=== PATIENT | male | born 1955 | race Caucasian/White ===

== ENCOUNTER 2016-11-15 05:37 | Emergency (ER) | payer SELFPAY ==
[~2016-11-15] VITALS: Ht 195.6 cm; Wt 97.7 kg
[~2016-11-15 05:37] MED LIST: DILAUDID 2MG TAB2 MG PO; NO HOME MEDICATIONS
[2016-11-15 05:42] VITALS: TEMP 97.8
[2016-11-15] MEDS ORDERED: ULTRAM 50MG TAB50 MG PO ×2 (06:02→08:48)
[2016-11-15 06:05] LABS: BASO # 0.1 (0.0-0.2); BASO % 1.4 % (0.0-2.0); EOS # 0.3 (0.0-0.7); EOS % 2.6 % (0-4.0); GRAN # 5.9 (1.4-6.5); GRAN % 57.5 % (42.2-75.2); HEMATOCRIT 49.3 % (42.0-52.0); HEMOGLOBIN 16.4 g/dl (13.5-18.0); LYMPH # 2.7 (1.2-3.4); LYMPH % 26.3 % (20.0-51.0); MEAN CELL VOLUME 91 fl (80.0-100.0); MEAN CORPUSCULAR HEMOGLOBIN 30 pg (27.0-31.0); MEAN CORPUSCULAR HGB CONC 33 g/dl (33.0-37.0); MEAN PLATELET VOLUME 9.7 fl (7.4-10.4); MONO # 1.2 (0.1-0.6); MONO % 11.3 % (1.7-9.3); PLATELET COUNT 286 K/mm3 (130-400); REDCELL DISTRIBUTION WIDTH-CV 15.2 % (11.5-14.5); WHITE BLOOD COUNT 10.2 K/mm3 (4.8-10.8)
[2016-11-15 06:20] LABS: ADJUSTED CALCIUM 8.6 mg/dL (8.4-10.2); ALANINE AMINOTRANSFERASE 22 U/L (21-72); ALBUMIN 4.1 gm/dL (3.5-5.0); ALKALINE PHOSPHATASE 57 U/L (50-136); ANION GAP 12 mmol/L (7-16); BILIRUBIN,TOTAL 0.6 mg/dL (0.0-1.0); BLOOD UREA NITROGEN 16 mg/dL (9-20); CALCIUM 8.7 mg/dL (8.4-10.2); CARBON DIOXIDE 25 mmol/L (22-30); CHLORIDE 103 mmol/L (98-107); CREATININE, serum 0.79 mg/dL (0.66-1.25); GLUCOSE 112 mg/dL (74-106); LIPASE 144 U/L (23-300); POTASSIUM 4.1 mmol/L (3.4-5.0); SODIUM 140 mmol/L (137-145); TOTAL PROTEIN 6.9 gm/dL (6.4-8.2)
[2016-11-15 06:29] LABS: B-TYPE NATRIURETIC PEPTIDE 81 pg/mL (0-125)
[2016-11-15 06:36] LABS: TROPONIN-I < 0.012 ng/mL (0.000-0.034)
[2016-11-15 06:37] LABS: C-REACTIVE PROTEIN < 0.5 mg/dL (0.0-0.9)
[2016-11-15 07:32] LABS: PH 5 (5-8); SQUAMOUS EPITHELIAL None Seen /hpf; URINE APPEARANCE Clear; URINE BACTERIA None Seen /hpf; URINE BILIRUBIN Negative (NEGATIVE); URINE BLOOD Negative (NEGATIVE); URINE COLOR Yellow; URINE GLUCOSE Negative (NEGATIVE); URINE KETONE Negative (NEGATIVE); URINE RBC 0-2 /hpf; URINE UROBILINOGEN Negative (NEGATIVE); URINE WBC 0-2 /hpf
[2016-11-15] MEDS ORDERED: PEPCID 20MG TAB20 MG PO (08:37)
[2016-11-15 08:52] VITALS: BP 147/107; PULSE 63
== END 2016-11-15 08:54 | disposition home or self-care (01) ==
LOC: COL.ER 05:37
PROVIDERS: Emergency Medicine
DX: R10.13 Epigastric pain (principal); T43.626A Underdosing of amphetamines, initial encounter; Z91.138 Patient's unintentional underdosing of medication regimen for other reason; F43.10 Post-traumatic stress disorder, unspecified; R11.0 Nausea
CPT/HCPCS: J1170; J2405; J7030

== ENCOUNTER 2016-12-05 14:16 | Emergency (ER) | payer SELFPAY ==
[~2016-12-05] VITALS: Ht 195.6 cm; Wt 100.0 kg
[~2016-12-05 14:16] MED LIST changes: +PEPCID 20MG TAB20 MG PO; +ULTRAM 50MG TAB50 MG PO
[2016-12-05 14:20] VITALS: PULSE 62; TEMP 97.8
[2016-12-05 14:56] LABS: BASO # 0.1 (0.0-0.2); BASO % 1.3 % (0.0-2.0); EOS # 0.2 (0.0-0.7); EOS % 1.9 % (0-4.0); GRAN # 4.4 (1.4-6.5); GRAN % 54.5 % (42.2-75.2); HEMATOCRIT 50.7 % (42.0-52.0); HEMOGLOBIN 16.7 g/dl (13.5-18.0); LYMPH # 2.6 (1.2-3.4); MEAN CELL VOLUME 90 fl (80.0-100.0); MEAN CORPUSCULAR HEMOGLOBIN 30 pg (27.0-31.0); MEAN CORPUSCULAR HGB CONC 33 g/dl (33.0-37.0); MONO # 0.8 (0.1-0.6); MONO % 9.9 % (1.7-9.3); PLATELET COUNT 217 K/mm3 (130-400); RED BLOOD COUNT 5.61 M/mm3 (4.20-5.60); REDCELL DISTRIBUTION WIDTH-CV 14.8 % (11.5-14.5)
[2016-12-05 15:09] LABS: ALANINE AMINOTRANSFERASE 20 U/L (21-72); ALBUMIN 4.3 gm/dL (3.5-5.0); ALKALINE PHOSPHATASE 53 U/L (50-136); ANION GAP 11 mmol/L (7-16); BILIRUBIN,TOTAL 0.7 mg/dL (0.0-1.0); BLOOD UREA NITROGEN 17 mg/dL (9-20); CALCIUM 9.2 mg/dL (8.4-10.2); CARBON DIOXIDE 26 mmol/L (22-30); CHLORIDE 102 mmol/L (98-107); GLUCOSE 88 mg/dL (74-106); LIPASE 41 U/L (23-300); POTASSIUM 4.2 mmol/L (3.4-5.0); SODIUM 138 mmol/L (137-145); TOTAL PROTEIN 7.2 gm/dL (6.4-8.2)
[2016-12-05 15:33] LABS: C-REACTIVE PROTEIN < 0.5 mg/dL (0.0-0.9)
[2016-12-05 15:43] LABS: TROPONIN-I < 0.012 ng/mL (0.000-0.034)
[2016-12-05 15:46] LABS: PH 6 (5-8); SQUAMOUS EPITHELIAL None Seen /hpf; URINE APPEARANCE Clear; URINE BACTERIA Rare /hpf; URINE BILIRUBIN Negative (NEGATIVE); URINE BLOOD Negative (NEGATIVE); URINE COLOR Straw; URINE GLUCOSE Negative (NEGATIVE); URINE KETONE Negative (NEGATIVE); URINE RBC 0-2 /hpf; URINE UROBILINOGEN Negative (NEGATIVE); URINE WBC 0-2 /hpf
[2016-12-05] MEDS ORDERED: NORVASC 5MG5 MG/TAB PO (18:07)
[2016-12-05 19:07] VITALS: BP 163/109
== END 2016-12-05 19:10 | disposition home or self-care (01) ==
LOC: COL.ER 14:16
PROVIDERS: Emergency Medicine
DX: R10.11 Right upper quadrant pain (principal); R10.13 Epigastric pain; I10 Essential (primary) hypertension; G89.29 Other chronic pain; K21.9 Gastro-esophageal reflux disease without esophagitis; F90.9 Attention-deficit hyperactivity disorder, unspecified type; F17.210 Nicotine dependence, cigarettes, uncomplicated
CPT/HCPCS: J1170; J2405; J7030; Q9967

== ENCOUNTER 2016-12-07 05:20 | Emergency (ER) | payer SELFPAY ==
[~2016-12-07] VITALS: Ht 195.6 cm; Wt 97.7 kg
[~2016-12-07 05:20] MED LIST changes: +NORVASC 5MG5 MG/TAB PO
[2016-12-07 05:25] VITALS: TEMP 97.5
[2016-12-07 06:07] LABS: BASO # 0.1 (0.0-0.2); BASO % 1.1 % (0.0-2.0); EOS # 0.2 (0.0-0.7); EOS % 1.9 % (0-4.0); GRAN # 4.9 (1.4-6.5); GRAN % 59.9 % (42.2-75.2); HEMATOCRIT 51.5 % (42.0-52.0); HEMOGLOBIN 17.6 g/dl (13.5-18.0); LYMPH # 2.2 (1.2-3.4); LYMPH % 26.3 % (20.0-51.0); MEAN CELL VOLUME 89 fl (80.0-100.0); MEAN CORPUSCULAR HEMOGLOBIN 31 pg (27.0-31.0); MEAN CORPUSCULAR HGB CONC 34 g/dl (33.0-37.0); MONO # 0.9 (0.1-0.6); MONO % 10.4 % (1.7-9.3); PLATELET COUNT 224 K/mm3 (130-400); RED BLOOD COUNT 5.76 M/mm3 (4.20-5.60); REDCELL DISTRIBUTION WIDTH-CV 14.9 % (11.5-14.5); WHITE BLOOD COUNT 8.3 K/mm3 (4.8-10.8)
[2016-12-07 06:21] LABS: ALANINE AMINOTRANSFERASE 18 U/L (21-72); ALBUMIN 4.3 gm/dL (3.5-5.0); ALKALINE PHOSPHATASE 51 U/L (50-136); ANION GAP 12 mmol/L (7-16); BILIRUBIN,TOTAL 1.1 mg/dL (0.0-1.0); BLOOD UREA NITROGEN 13 mg/dL (9-20); C-REACTIVE PROTEIN < 0.5 mg/dL (0.0-0.9); CALCIUM 9.2 mg/dL (8.4-10.2); CARBON DIOXIDE 26 mmol/L (22-30); CHLORIDE 102 mmol/L (98-107); CREATININE, serum 0.81 mg/dL (0.66-1.25); GLUCOSE 94 mg/dL (74-106); LIPASE 54 U/L (23-300); POTASSIUM 3.8 mmol/L (3.4-5.0); SODIUM 140 mmol/L (137-145); TOTAL PROTEIN 7.6 gm/dL (6.4-8.2)
[2016-12-07] MEDS ORDERED: NEXIUM 40MG40 MG PO (06:21)
[2016-12-07 08:34] VITALS: BP 173/113; PULSE 49
== END 2016-12-07 08:40 | disposition home or self-care (01) ==
LOC: COL.ER 05:20
PROVIDERS: Emergency Medicine
DX: R10.13 Epigastric pain (principal); I10 Essential (primary) hypertension; R11.2 Nausea with vomiting, unspecified; R63.0 Anorexia; F17.200 Nicotine dependence, unspecified, uncomplicated
CPT/HCPCS: C9113; J1170; J2550; J7030

== ENCOUNTER 2016-12-24 15:45 | Emergency (ER) | payer SELFPAY ==
[~2016-12-24] VITALS: Ht 195.6 cm; Wt 100.0 kg
[~2016-12-24 15:45] MED LIST changes: +NEXIUM 40MG40 MG PO
[2016-12-24 15:54] VITALS: TEMP 98.4
[2016-12-24 16:18] LABS: BASO # 0.1 (0.0-0.2); BASO % 1.1 % (0.0-2.0); EOS # 0.1 (0.0-0.7); EOS % 1.2 % (0-4.0); GRAN # 6.5 (1.4-6.5); GRAN % 61.8 % (42.2-75.2); HEMATOCRIT 47.2 % (42.0-52.0); HEMOGLOBIN 16.1 g/dl (13.5-18.0); LYMPH # 2.7 (1.2-3.4); LYMPH % 26.1 % (20.0-51.0); MEAN CELL VOLUME 91 fl (80.0-100.0); MEAN CORPUSCULAR HEMOGLOBIN 31 pg (27.0-31.0); MEAN CORPUSCULAR HGB CONC 34 g/dl (33.0-37.0); MEAN PLATELET VOLUME 9.7 fl (7.4-10.4); MONO % 9.2 % (1.7-9.3); PLATELET COUNT 252 K/mm3 (130-400); RED BLOOD COUNT 5.18 M/mm3 (4.20-5.60); REDCELL DISTRIBUTION WIDTH-CV 15.4 % (11.5-14.5); WHITE BLOOD COUNT 10.4 K/mm3 (4.8-10.8)
[2016-12-24 16:24] LABS: INR 0.9 (0.8-3.0); PROTHROMBIN TIME 10.3 SECONDS (9.7-12.8)
[2016-12-24 16:26] LABS: PARTIAL THROMBOPLASTIN TIME 27.9 SECONDS (26.0-37.0)
[2016-12-24 16:34] LABS: ALANINE AMINOTRANSFERASE 24 U/L (21-72); ALBUMIN 4.1 gm/dL (3.5-5.0); ALKALINE PHOSPHATASE 50 U/L (50-136); ANION GAP 11 mmol/L (7-16); BILIRUBIN,TOTAL 0.5 mg/dL (0.0-1.0); BLOOD UREA NITROGEN 21 mg/dL (9-20); CALCIUM 9.1 mg/dL (8.4-10.2); CARBON DIOXIDE 23 mmol/L (22-30); CHLORIDE 107 mmol/L (98-107); CREATININE, serum 0.98 mg/dL (0.66-1.25); GLUCOSE 108 mg/dL (74-106); POTASSIUM 3.9 mmol/L (3.4-5.0); SODIUM 142 mmol/L (137-145)
[2016-12-24 16:51] LABS: TROPONIN-I < 0.012 ng/mL (0.000-0.034)
[2016-12-24] MEDS ORDERED: NORVASC 5MG5 MG/TAB PO (18:07)
[2016-12-24] MEDS ORDERED: ADDERALL5 MG PO (18:07)
[2016-12-24] MEDS ORDERED: XANAX 1MG1 MG PO (18:07)
[2016-12-24] MEDS ORDERED: PHENERGAN 25 TA25 MG PO (18:21)
[2016-12-24 18:33] VITALS: BP 152/100; PULSE 64
== END 2016-12-24 18:25 | disposition home or self-care (01) ==
LOC: COL.ER 15:45
PROVIDERS: Nurse Practitioner
DX: R07.9 Chest pain, unspecified (principal); F11.23 Opioid dependence with withdrawal; F15.93 Other stimulant use, unspecified with withdrawal; I10 Essential (primary) hypertension
CPT/HCPCS: J1885; J2550; J7030

== ENCOUNTER 2017-04-09 19:48 | Emergency (ER) | payer SELFPAY ==
[~2017-04-09] VITALS: Ht 195.6 cm; Wt 102.3 kg
[~2017-04-09 19:48] MED LIST changes: +ADDERALL5 MG PO; +PHENERGAN 25 TA25 MG PO; +XANAX 1MG1 MG PO
[2017-04-09 19:53] VITALS: TEMP 97.9
[2017-04-09 20:42] LABS: BASO # 0.1 (0.0-0.2); BASO % 1.3 % (0.0-2.0); EOS # 0.2 (0.0-0.7); EOS % 2.4 % (0-4.0); GRAN % 52.6 % (42.2-75.2); HEMATOCRIT 48.5 % (42.0-52.0); HEMOGLOBIN 16.7 g/dl (13.5-18.0); LYMPH # 3.2 (1.2-3.4); LYMPH % 33.6 % (20.0-51.0); MEAN CELL VOLUME 91 fl (80.0-100.0); MEAN CORPUSCULAR HEMOGLOBIN 31 pg (27.0-31.0); MEAN CORPUSCULAR HGB CONC 34 g/dl (33.0-37.0); MEAN PLATELET VOLUME 9.8 fl (7.4-10.4); MONO # 0.9 (0.1-0.6); MONO % 9.6 % (1.7-9.3); PLATELET COUNT 267 K/mm3 (130-400); RED BLOOD COUNT 5.35 M/mm3 (4.20-5.60); WHITE BLOOD COUNT 9.6 K/mm3 (4.8-10.8)
[2017-04-09 20:56] LABS: ADJUSTED CALCIUM 9.3 mg/dL (8.4-10.2); ALANINE AMINOTRANSFERASE 25 U/L (21-72); ALBUMIN 4.2 gm/dL (3.5-5.0); ALKALINE PHOSPHATASE 47 U/L (50-136); ANION GAP 9 mmol/L (7-16); BILIRUBIN,TOTAL 0.5 mg/dL (0.0-1.0); BLOOD UREA NITROGEN 21 mg/dL (9-20); CALCIUM 9.5 mg/dL (8.4-10.2); CARBON DIOXIDE 24 mmol/L (22-30); CHLORIDE 107 mmol/L (98-107); CREATININE, serum 1.13 mg/dL (0.66-1.25); GLUCOSE 100 mg/dL (74-106); LIPASE 80 U/L (23-300); POTASSIUM 3.8 mmol/L (3.4-5.0); SODIUM 140 mmol/L (137-145); TOTAL PROTEIN 7.1 gm/dL (6.4-8.2)
[2017-04-09 20:57] LABS: C-REACTIVE PROTEIN < 0.5 mg/dL (0.0-0.9)
[2017-04-09 21:09] LABS: TROPONIN-I < 0.012 ng/mL (0.000-0.034)
[2017-04-09 22:03] LABS: COLLECTION METHOD CLEAN CATCH
[2017-04-09 22:10] LABS: MUCOUS Present /lpf; PH 6 (5-8); SQUAMOUS EPITHELIAL None Seen /hpf; URINE APPEARANCE Clear; URINE BACTERIA None Seen /hpf; URINE BILIRUBIN Negative (NEGATIVE); URINE BLOOD Negative (NEGATIVE); URINE COLOR Yellow; URINE GLUCOSE Negative (NEGATIVE); URINE KETONE Negative (NEGATIVE); URINE LEUKOCYTE ESTERASE Negative (NEGATIVE); URINE PROTEIN(semi-quant) Negative (NEGATIVE); URINE RBC 0-2 /hpf; URINE UROBILINOGEN Negative (NEGATIVE); URINE WBC 0-2 /hpf
[2017-04-09 22:59] VITALS: BP 125/97; PULSE 80
== END 2017-04-09 23:01 | disposition home or self-care (01) ==
LOC: COL.ER 19:48
PROVIDERS: Emergency Medicine
DX: R10.9 Unspecified abdominal pain (principal); I10 Essential (primary) hypertension
CPT/HCPCS: J1170; J2060; J2405; J7030

== ENCOUNTER 2017-05-25 16:02 | Emergency (ER) | payer SELFPAY ==
[~2017-05-25] VITALS: Ht 195.6 cm; Wt 100.0 kg
[2017-05-25 16:15] VITALS: BP 167/98; PULSE 72; TEMP 98
[2017-05-25 17:05] LABS: BASO # 0.1 (0.0-0.2); BASO % 1.2 % (0.0-2.0); EOS # 0.2 (0.0-0.7); EOS % 2.4 % (0-4.0); HEMATOCRIT 48.5 % (42.0-52.0); HEMOGLOBIN 16.4 g/dl (13.5-18.0); LYMPH # 2.2 (1.2-3.4); LYMPH % 25.3 % (20.0-51.0); MEAN CELL VOLUME 92 fl (80.0-100.0); MEAN CORPUSCULAR HEMOGLOBIN 31 pg (27.0-31.0); MEAN CORPUSCULAR HGB CONC 34 g/dl (33.0-37.0); MEAN PLATELET VOLUME 9.8 fl (7.4-10.4); MONO # 1.1 (0.1-0.6); MONO % 12.7 % (1.7-9.3); PLATELET COUNT 239 K/mm3 (130-400); RED BLOOD COUNT 5.26 M/mm3 (4.20-5.60); WHITE BLOOD COUNT 8.5 K/mm3 (4.8-10.8)
[2017-05-25] MEDS ORDERED: MICROZIDE12.5 MG PO (17:05)
[2017-05-25] MEDS ORDERED: NORVASC 5MG5 MG/TAB PO (17:06)
[2017-05-25] MEDS ORDERED: NORCO 325 MG-101 TAB PO (17:12)
[2017-05-25 17:17] LABS: ADJUSTED CALCIUM 9.2 mg/dL (8.4-10.2); ALANINE AMINOTRANSFERASE 30 U/L (21-72); ALBUMIN 4.4 gm/dL (3.5-5.0); ALKALINE PHOSPHATASE 49 U/L (50-136); ANION GAP 9 mmol/L (7-16); BILIRUBIN,TOTAL 0.4 mg/dL (0.0-1.0); BLOOD UREA NITROGEN 17 mg/dL (9-20); CALCIUM 9.5 mg/dL (8.4-10.2); CARBON DIOXIDE 21 mmol/L (22-30); CHLORIDE 108 mmol/L (98-107); CREATININE, serum 0.84 mg/dL (0.66-1.25); GLUCOSE 93 mg/dL (74-106); LIPASE 46 U/L (23-300); POTASSIUM 4.6 mmol/L (3.4-5.0); SODIUM 138 mmol/L (137-145); TOTAL PROTEIN 7.3 gm/dL (6.4-8.2)
[2017-05-25 17:18] LABS: C-REACTIVE PROTEIN < 0.5 mg/dL (0.0-0.9)
[2017-05-25 17:25] LABS: TROPONIN-I < 0.012 ng/mL (0.000-0.034)
[2017-05-25 17:38] LABS: COLLECTION METHOD CLEAN CATCH
[2017-05-25 17:58] LABS: PH 5 (5-8); SQUAMOUS EPITHELIAL None Seen /hpf; URINE APPEARANCE Clear; URINE BACTERIA None Seen /hpf; URINE BILIRUBIN Negative (NEGATIVE); URINE BLOOD Negative (NEGATIVE); URINE COLOR Yellow; URINE GLUCOSE Negative (NEGATIVE); URINE KETONE Negative (NEGATIVE); URINE LEUKOCYTE ESTERASE Negative (NEGATIVE); URINE PROTEIN(semi-quant) Negative (NEGATIVE); URINE RBC 0-2 /hpf; URINE UROBILINOGEN Negative (NEGATIVE); URINE WBC 0-2 /hpf
== END 2017-05-25 18:25 | disposition home or self-care (01) ==
LOC: COL.ER 16:02
PROVIDERS: Emergency Medicine
DX: R10.13 Epigastric pain (principal); I10 Essential (primary) hypertension; F17.210 Nicotine dependence, cigarettes, uncomplicated
CPT/HCPCS: J2270; J2405; J7030

== ENCOUNTER 2017-06-26 05:34 | Emergency (ER) | payer BC ==
[~2017-06-26] VITALS: Ht 195.6 cm; Wt 100.0 kg
[~2017-06-26 05:34] MED LIST changes: +MICROZIDE12.5 MG PO; +NORCO 325 MG-101 TAB PO
[2017-06-26 05:37] VITALS: BP 155/96
[2017-06-26] MEDS ORDERED: PERCOCET 325 MG1 TA2 PO (06:42)
[2017-06-26 06:55] VITALS: PULSE 60
== END 2017-06-26 06:55 | disposition home or self-care (01) ==
LOC: COL.ER 05:34
DX: G89.29 Other chronic pain (principal); R10.13 Epigastric pain; I10 Essential (primary) hypertension; F17.210 Nicotine dependence, cigarettes, uncomplicated
CPT/HCPCS: J0500; J1170

== ENCOUNTER 2017-08-28 18:45 | Emergency (ER) | payer BC ==
[~2017-08-28] VITALS: Ht 195.6 cm; Wt 100.0 kg
[~2017-08-28 18:45] MED LIST changes: +CARAFATE 1GM1 G PO; +FLEXERIL 1010 MG/TAB PO; +NORCO 325 MG-51 TAB PO; +PERCOCET 325 MG1 TA2 PO; +PRILOTC PO
[2017-08-28 18:48] VITALS: TEMP 98.1
[2017-08-28] MEDS ORDERED: ADDERALL15 MG PO (19:24)
[2017-08-28] MEDS ORDERED: ULTRAM 50MG TAB50 MG PO (20:16)
[2017-08-28] MEDS ORDERED: LIDODERM 5% PATC1 EA TP (20:18)
[2017-08-28 20:28] VITALS: BP 148/103; PULSE 64
== END 2017-08-28 20:30 | disposition home or self-care (01) ==
LOC: COL.ER 18:45
DX: G89.29 Other chronic pain (principal); M54.5 Low back pain; F17.210 Nicotine dependence, cigarettes, uncomplicated; F12.90 Cannabis use, unspecified, uncomplicated; Z98.890 Other specified postprocedural states
CPT/HCPCS: J2270; J2550

== ENCOUNTER 2017-10-14 22:58 | Emergency (ER) | payer BC ==
[~2017-10-14] VITALS: Ht 195.6 cm; Wt 97.7 kg
[~2017-10-14 22:58] MED LIST changes: +ADDERALL15 MG PO; +LIDODERM 5% PATC1 EA TP; +ZOFRAN ODT4 MG PO
[2017-10-14 23:02] VITALS: TEMP 97.7
[2017-10-15 01:06] VITALS: BP 173/122
[2017-10-15 01:54] VITALS: PULSE 57
== END 2017-10-15 01:54 | disposition home or self-care (01) ==
LOC: COL.ER 22:58
DX: G89.29 Other chronic pain (principal); R10.13 Epigastric pain; I10 Essential (primary) hypertension; K21.9 Gastro-esophageal reflux disease without esophagitis; F17.210 Nicotine dependence, cigarettes, uncomplicated; Z87.11 Personal history of peptic ulcer disease; F12.90 Cannabis use, unspecified, uncomplicated
CPT/HCPCS: J0500; J1170; J1630; J2765; J7120

== ENCOUNTER 2017-10-19 13:00 | Inpatient (IN) | payer BC ==
[~2017-10-19] VITALS: Ht 195.6 cm; Wt 87.5 kg
[2017-10-19 14:44] LABS: BASO # 0.1 (0.0-0.2); BASO % 0.9 % (0.0-2.0); EOS # 0.1 (0.0-0.7); EOS % 0.6 % (0-4.0); GRAN # 7.1 (1.4-6.5); GRAN % 62.3 % (42.2-75.2); LYMPH # 2.7 (1.2-3.4); LYMPH % 24.2 % (20.0-51.0); MEAN CELL VOLUME 85 fl (80.0-100.0); MEAN CORPUSCULAR HGB CONC 35 g/dl (33.0-37.0); MEAN PLATELET VOLUME 10.2 fl (7.4-10.4); MONO # 1.3 (0.1-0.6); MONO % 11.6 % (1.7-9.3); PLATELET COUNT 328 K/mm3 (130-400); REDCELL DISTRIBUTION WIDTH-CV 13.6 % (11.5-14.5)
[2017-10-19 14:45] LABS: HEMATOCRIT 53.6 % (42.0-52.0); HEMOGLOBIN 18.7 g/dl (13.5-18.0); MEAN CORPUSCULAR HEMOGLOBIN 30 pg (27.0-31.0)
[2017-10-19 15:28] LABS: ALANINE AMINOTRANSFERASE 26 U/L (21-72); ALBUMIN 3.6 gm/dL (3.5-5.0); ALKALINE PHOSPHATASE 60 U/L (50-136); ANION GAP 11 mmol/L (7-16); AST,SGOT 16 U/L (15-37); BILIRUBIN,TOTAL 0.9 mg/dL (0.0-1.0); BLOOD UREA NITROGEN 27 mg/dL (9-20); CALCIUM 8.5 mg/dL (8.4-10.2); CARBON DIOXIDE 30 mmol/L (22-30); CHLORIDE 98 mmol/L (98-107); CREATINE KINASE 26 U/L (55-170); CREATININE, serum 0.83 mg/dL (0.66-1.25); GLUCOSE 104 mg/dL (74-106); LIPASE 81 U/L (23-300); POTASSIUM 3.6 mmol/L (3.4-5.0); SODIUM 139 mmol/L (137-145)
[2017-10-19 15:31] LABS: ACETAMINOPHEN < 10 ug/mL (10-30); ALCOHOL(ethanol),MEDICAL < 10 mg/dL; SALICYLATE < 1.0 mg/dL
[2017-10-19 15:38] LABS: TROPONIN-I 0.034 ng/mL (0.000-0.034)
[2017-10-19 17:30] VITALS: BP 132/91; PULSE 106; TEMP 99.1
[2017-10-19 17:37] LABS: COLLECTION METHOD CLEAN CATCH
[2017-10-19 17:50] LABS: MUCOUS Present /lpf; PH 6 (5-8); SQUAMOUS EPITHELIAL 0-2 /hpf; URINE APPEARANCE Clear; URINE BACTERIA Occasional /hpf; URINE BILIRUBIN Negative (NEGATIVE); URINE BLOOD 1+ (NEGATIVE); URINE COLOR Yellow; URINE GLUCOSE Negative (NEGATIVE); URINE KETONE 1+ (NEGATIVE); URINE LEUKOCYTE ESTERASE Negative (NEGATIVE); URINE NITRATE Negative (NEGATIVE); URINE PROTEIN(semi-quant) 1+ (NEGATIVE); URINE RBC 0-2 /hpf
[2017-10-19 18:09] LABS: TRICYCLIC ANTIDEPRESS URINE NEGATIVE
[2017-10-19 20:17] VITALS: BP 143/116; PULSE 70; TEMP 98.6
[2017-10-19 23:44] VITALS: BP 138/40; PULSE 75; TEMP 99.3
[2017-10-20] VITALS (13 sets, daily range): BP systolic 107–158; BP diastolic 77–100; PULSE 60–167; TEMP 98.2–98.9
[2017-10-20 06:23] LABS: BASO # 0.1 (0.0-0.2); BASO % 0.9 % (0.0-2.0); EOS # 0.1 (0.0-0.7); EOS % 1.3 % (0-4.0); GRAN # 5.3 (1.4-6.5); GRAN % 54.4 % (42.2-75.2); HEMATOCRIT 49.3 % (42.0-52.0); MEAN CELL VOLUME 89 fl (80.0-100.0); MEAN CORPUSCULAR HEMOGLOBIN 30 pg (27.0-31.0); MEAN CORPUSCULAR HGB CONC 33 g/dl (33.0-37.0); MEAN PLATELET VOLUME 10.3 fl (7.4-10.4); MONO # 1.2 (0.1-0.6); MONO % 12.1 % (1.7-9.3); PLATELET COUNT 306 K/mm3 (130-400); RED BLOOD COUNT 5.55 M/mm3 (4.20-5.60); REDCELL DISTRIBUTION WIDTH-CV 13.6 % (11.5-14.5)
[2017-10-20 06:24] LABS: HEMOGLOBIN 16.4 g/dl (13.5-18.0)
[2017-10-20 06:31] LABS: ALBUMIN 3.7 gm/dL (3.5-5.0); BILIRUBIN,TOTAL 1.3 mg/dL (0.0-1.0); CALCIUM 8.9 mg/dL (8.4-10.2); CREATININE, serum 0.82 mg/dL (0.66-1.25); MAGNESIUM 2.2 mg/dL (1.6-2.3); POTASSIUM 3.7 mmol/L (3.4-5.0); TOTAL PROTEIN 7.1 gm/dL (6.4-8.2)
[2017-10-21 03:47] VITALS: BP 137/110; PULSE 91; TEMP 98
[2017-10-21 06:00] VITALS: BP 126/79; PULSE 61; TEMP 98
[2017-10-21 06:49] LABS: ALBUMIN 3.7 gm/dL (3.5-5.0); BILIRUBIN,TOTAL 1.2 mg/dL (0.0-1.0); CREATININE, serum 0.83 mg/dL (0.66-1.25); POTASSIUM 3.4 mmol/L (3.4-5.0)
[2017-10-21 10:20] VITALS: BP 134/87; PULSE 66; TEMP 98.7
[2017-10-21 15:34] VITALS: BP 125/55; PULSE 60; TEMP 98.2
[2017-10-21] MEDS ORDERED: HCTZ 25MG TAB25 MG PO (16:18)
[2017-10-21] MEDS ORDERED: SEROQUEL50 MG PO (16:19)
== END 2017-10-21 16:56 | disposition left against medical advice (07) | DRG 894 ==
LOC: COL.ER 13:00 → MEDICAL 15:57
PROVIDERS: Emergency Medicine; Family Medicine; Nurse Practitioner Family
DX: F19.931 Other psychoactive substance use, unspecified with withdrawal delirium (principal); R44.1 Visual hallucinations; F12.10 Cannabis abuse, uncomplicated; F41.1 Generalized anxiety disorder; I10 Essential (primary) hypertension; M54.5 Low back pain; F17.210 Nicotine dependence, cigarettes, uncomplicated
CPT/HCPCS: 99222-AI; 99231-AI; 99232-AI; J1630; J1650; J2060; J2405; J3360; J3480; J7030

== ENCOUNTER 2017-10-26 06:24 | Emergency (ER) | payer BC ==
[~2017-10-26] VITALS: Ht 195.6 cm; Wt 88.6 kg
[~2017-10-26 06:24] MED LIST changes: +HCTZ 25MG TAB25 MG PO; +SEROQUEL50 MG PO
[2017-10-26 06:32] VITALS: TEMP 97.1
[2017-10-26 07:03] LABS: BASO # 0.1 (0.0-0.2); BASO % 1.2 % (0.0-2.0); EOS # 0.2 (0.0-0.7); EOS % 1.3 % (0-4.0); GRAN # 7.7 (1.4-6.5); GRAN % 63.9 % (42.2-75.2); HEMOGLOBIN 17.8 g/dl (13.5-18.0); LYMPH # 2.8 (1.2-3.4); LYMPH % 23.1 % (20.0-51.0); MEAN CELL VOLUME 88 fl (80.0-100.0); MEAN CORPUSCULAR HEMOGLOBIN 30 pg (27.0-31.0); MEAN CORPUSCULAR HGB CONC 34 g/dl (33.0-37.0); MEAN PLATELET VOLUME 9.9 fl (7.4-10.4); MONO # 1.2 (0.1-0.6); MONO % 10.1 % (1.7-9.3); PLATELET COUNT 341 K/mm3 (130-400); RED BLOOD COUNT 5.94 M/mm3 (4.20-5.60); REDCELL DISTRIBUTION WIDTH-CV 14.1 % (11.5-14.5)
[2017-10-26 07:17] LABS: ALANINE AMINOTRANSFERASE 22 U/L (21-72); ALBUMIN 3.9 gm/dL (3.5-5.0); ALKALINE PHOSPHATASE 74 U/L (50-136); ANION GAP 11 mmol/L (7-16); AST,SGOT 30 U/L (15-37); BILIRUBIN,TOTAL 0.6 mg/dL (0.0-1.0); BLOOD UREA NITROGEN 17 mg/dL (9-20); C-REACTIVE PROTEIN < 0.5 mg/dL (0.0-0.9); CALCIUM 9.3 mg/dL (8.4-10.2); CARBON DIOXIDE 29 mmol/L (22-30); CHLORIDE 102 mmol/L (98-107); CREATININE, serum 1.11 mg/dL (0.66-1.25); GLUCOSE 127 mg/dL (74-106); LIPASE 50 U/L (23-300); POTASSIUM 4.2 mmol/L (3.4-5.0); SODIUM 141 mmol/L (137-145); TOTAL PROTEIN 7.6 gm/dL (6.4-8.2)
[2017-10-26 07:36] VITALS: BP 144/100; PULSE 76
== END 2017-10-26 07:38 | disposition home or self-care (01) ==
LOC: COL.ER 06:24
PROVIDERS: Emergency Medicine
DX: G89.29 Other chronic pain (principal); R10.13 Epigastric pain; R11.0 Nausea; I10 Essential (primary) hypertension; F17.210 Nicotine dependence, cigarettes, uncomplicated
CPT/HCPCS: J1885; J2765; J7030

== ENCOUNTER 2017-10-30 07:34 | Emergency (ER) | payer BC ==
[~2017-10-30] VITALS: Ht 195.6 cm; Wt 88.6 kg
[2017-10-30 07:35] VITALS: TEMP 97.6
[2017-10-30 08:15] LABS: BASO # 0.1 (0.0-0.2); BASO % 1.4 % (0.0-2.0); EOS # 0.1 (0.0-0.7); EOS % 1.6 % (0-4.0); GRAN # 5.7 (1.4-6.5); GRAN % 64.6 % (42.2-75.2); HEMOGLOBIN 17.6 g/dl (13.5-18.0); LYMPH # 1.6 (1.2-3.4); LYMPH % 18.5 % (20.0-51.0); MEAN CELL VOLUME 88 fl (80.0-100.0); MEAN CORPUSCULAR HEMOGLOBIN 29 pg (27.0-31.0); MEAN CORPUSCULAR HGB CONC 34 g/dl (33.0-37.0); MEAN PLATELET VOLUME 9.2 fl (7.4-10.4); MONO # 1.2 (0.1-0.6); MONO % 13.6 % (1.7-9.3); PLATELET COUNT 331 K/mm3 (130-400); RED BLOOD COUNT 5.99 M/mm3 (4.20-5.60); REDCELL DISTRIBUTION WIDTH-CV 14.2 % (11.5-14.5)
[2017-10-30 08:22] LABS: HEMATOCRIT 52.4 % (42.0-52.0)
[2017-10-30] MEDS ORDERED: NORVASC 10MG10 MG PO (08:23)
[2017-10-30] MEDS ORDERED: CARAFATE 1GM1 G PO (08:24)
[2017-10-30] MEDS ORDERED: PROTONIX 40MG T40 MG PO (08:25)
[2017-10-30] MEDS ORDERED: PEPCID 20MG TAB20 MG PO (08:25)
[2017-10-30 08:34] LABS: ALBUMIN 3.9 gm/dL (3.5-5.0); BILIRUBIN,TOTAL 0.7 mg/dL (0.0-1.0); CALCIUM 9.2 mg/dL (8.4-10.2); CREATININE, serum 1.26 mg/dL (0.66-1.25); POTASSIUM 4.2 mmol/L (3.4-5.0); TOTAL PROTEIN 7.5 gm/dL (6.4-8.2)
[2017-10-30 09:00] VITALS: BP 181/123; PULSE 83
== END 2017-10-30 09:30 | disposition home or self-care (01) ==
LOC: COL.ER 07:34
PROVIDERS: Physician Assistant
DX: G89.29 Other chronic pain (principal); R10.13 Epigastric pain
CPT/HCPCS: J2550

== ENCOUNTER 2018-02-18 18:59 | Emergency (ER) | payer BC ==
[~2018-02-18] VITALS: Ht 195.6 cm; Wt 102.3 kg
[~2018-02-18 18:59] MED LIST changes: +NORVASC 10MG10 MG PO; +PROTONIX 40MG T40 MG PO
[2018-02-18 19:01] VITALS: BP 147/106; TEMP 98.1
[2018-02-18 20:44] VITALS: PULSE 86
== END 2018-02-18 20:45 | disposition home or self-care (01) ==
LOC: COL.ER 18:59
DX: G89.29 Other chronic pain (principal); M54.5 Low back pain; I10 Essential (primary) hypertension; K21.9 Gastro-esophageal reflux disease without esophagitis

== ENCOUNTER 2018-05-08 17:41 | Emergency (ER) | payer BC ==
[~2018-05-08] VITALS: Ht 195.6 cm; Wt 101.8 kg
[2018-05-08 17:58] VITALS: TEMP 98.2
[2018-05-08 18:42] LABS: COLLECTION METHOD CLEAN CATCH
[2018-05-08 18:53] LABS: MUCOUS Present /lpf; PH 5 (5-8); SQUAMOUS EPITHELIAL 0-2 /hpf; URINE APPEARANCE Clear; URINE BACTERIA Rare /hpf; URINE BILIRUBIN Negative (NEGATIVE); URINE BLOOD Negative (NEGATIVE); URINE COLOR Yellow; URINE GLUCOSE Negative (NEGATIVE); URINE KETONE Negative (NEGATIVE); URINE LEUKOCYTE ESTERASE Negative (NEGATIVE); URINE NITRATE Negative (NEGATIVE); URINE PROTEIN(semi-quant) Negative (NEGATIVE); URINE RBC 0-2 /hpf; URINE UROBILINOGEN Negative (NEGATIVE)
[2018-05-08] MEDS ORDERED: NORCO 325 MG-51 TAB PO (20:27)
[2018-05-08 20:46] VITALS: BP 135/101; PULSE 70
== END 2018-05-08 20:48 | disposition home or self-care (01) ==
LOC: COL.ER 17:41
PROVIDERS: Emergency Medicine
DX: N50.3 Cyst of epididymis (principal); N43.3 Hydrocele, unspecified; I86.1 Scrotal varices
CPT/HCPCS: J1170; J1885

== ENCOUNTER 2018-05-15 17:37 | Emergency (ER) | payer SELFPAY ==
[~2018-05-15] VITALS: Ht 195.6 cm; Wt 102.3 kg
[2018-05-15 17:40] VITALS: TEMP 96.9
[2018-05-15] MEDS ORDERED: CATAPRES0.2 MG PO (18:00)
[2018-05-15] MEDS ORDERED: KLONOPIN 1MG1 MG PO (18:01)
[2018-05-15 18:24] LABS: COLLECTION METHOD CLEAN CATCH
[2018-05-15 18:40] LABS: MUCOUS Present /lpf; PH 5 (5-8); SQUAMOUS EPITHELIAL 0-2 /hpf; URINE APPEARANCE Clear; URINE BACTERIA None Seen /hpf; URINE BILIRUBIN Negative (NEGATIVE); URINE BLOOD Negative (NEGATIVE); URINE COLOR Yellow; URINE GLUCOSE Negative (NEGATIVE); URINE KETONE Negative (NEGATIVE); URINE LEUKOCYTE ESTERASE Negative (NEGATIVE); URINE NITRATE Negative (NEGATIVE); URINE PROTEIN(semi-quant) 1+ (NEGATIVE); URINE RBC 0-2 /hpf
[2018-05-15] MEDS ORDERED: CIPRO 500MG TA500 MG PO (18:48)
[2018-05-15 19:37] VITALS: BP 142/102; PULSE 64
== END 2018-05-15 19:49 | disposition home or self-care (01) ==
LOC: COL.ER 17:37
PROVIDERS: Physician Assistant
DX: I86.1 Scrotal varices (principal); I10 Essential (primary) hypertension; F17.210 Nicotine dependence, cigarettes, uncomplicated
CPT/HCPCS: J1885; J2270

== ENCOUNTER 2018-06-22 10:30 | Emergency (ER) | payer SELFPAY ==
[~2018-06-22] VITALS: Ht 195.6 cm; Wt 100.0 kg
[~2018-06-22 10:30] MED LIST changes: +CATAPRES0.2 MG PO; +CIPRO 500MG TA500 MG PO; +KLONOPIN 1MG1 MG PO
[2018-06-22 10:40] VITALS: TEMP 97.8
[2018-06-22 11:56] LABS: COLLECTION METHOD CLEAN CATCH
[2018-06-22 12:06] LABS: HEMATOCRIT 51.7 % (42.0-52.0); HEMOGLOBIN 17.1 g/dl (13.5-18.0); MEAN CELL VOLUME 90 fl (80.0-100.0); MEAN CORPUSCULAR HEMOGLOBIN 30 pg (27.0-31.0); MEAN CORPUSCULAR HGB CONC 33 g/dl (33.0-37.0); PLATELET COUNT 207 K/mm3 (130-400); RED BLOOD COUNT 5.76 M/mm3 (4.20-5.60); REDCELL DISTRIBUTION WIDTH-CV 14.4 % (11.5-14.5)
[2018-06-22 12:09] LABS: ALBUMIN 4.1 gm/dL (3.5-5.0); BILIRUBIN,TOTAL 0.3 mg/dL (0.0-1.0); C-REACTIVE PROTEIN 1.2 mg/dL (0.0-0.9); CREATININE, serum 0.82 mg/dL (0.66-1.25); POTASSIUM 4.7 mmol/L (3.4-5.0); TOTAL PROTEIN 7.4 gm/dL (6.4-8.2)
[2018-06-22 12:09] LABS: MUCOUS Present /lpf; PH 6 (5-8); SQUAMOUS EPITHELIAL None Seen /hpf; URINE APPEARANCE Clear; URINE BACTERIA None Seen /hpf; URINE BILIRUBIN Negative (NEGATIVE); URINE BLOOD Negative (NEGATIVE); URINE COLOR Yellow; URINE GLUCOSE Negative (NEGATIVE); URINE KETONE Negative (NEGATIVE); URINE LEUKOCYTE ESTERASE Negative (NEGATIVE); URINE NITRATE Negative (NEGATIVE); URINE PROTEIN(semi-quant) Negative (NEGATIVE); URINE RBC 0-2 /hpf; URINE UROBILINOGEN Negative (NEGATIVE)
[2018-06-22 12:21] LABS: BAND 13 % (0-10); EOSINOPHIL 2 % (0-4); NEUTROPHILS 45 % (42.0-75.2); PLATELET ESTIMATE NORMAL (NORMAL)
[2018-06-22 12:22] LABS: LYMPHOCYTE 19 % (20.0-51.0)
[2018-06-22] MEDS ORDERED: ZOFRAN ODT4 MG PO (13:28)
[2018-06-22 13:55] VITALS: BP 127/95; PULSE 82
[2018-06-22] MEDS ORDERED: TAMIFLU 75MG75 MG PO (14:17)
== END 2018-06-22 13:56 | disposition home or self-care (01) ==
LOC: COL.ER 10:30
PROVIDERS: Family Medicine
DX: J11.1 Influenza due to unidentified influenza virus with other respiratory manifestations (principal)
CPT/HCPCS: J2270; J2405; J7030

== ENCOUNTER 2018-08-12 08:34 | Emergency (ER) | payer SELFPAY ==
[~2018-08-12] VITALS: Ht 195.6 cm; Wt 100.0 kg
[~2018-08-12 08:34] MED LIST changes: +TAMIFLU 75MG75 MG PO
[2018-08-12 09:10] VITALS: BP 145/85; TEMP 97.7
[2018-08-12 11:00] VITALS: PULSE 68
[2018-08-14 00:05] LABS: COLLECTION METHOD CLEAN CATCH
[2018-08-14 00:07] LABS: HEMATOCRIT 52.2 % (42.0-52.0); HEMOGLOBIN 17.7 g/dl (13.5-18.0); MEAN CELL VOLUME 88 fl (80.0-100.0); MEAN CORPUSCULAR HEMOGLOBIN 30 pg (27.0-31.0); MEAN CORPUSCULAR HGB CONC 34 g/dl (33.0-37.0); MEAN PLATELET VOLUME 10.3 fl (7.4-10.4); PLATELET COUNT 261 K/mm3 (130-400); RED BLOOD COUNT 5.92 M/mm3 (4.20-5.60); REDCELL DISTRIBUTION WIDTH-CV 15.6 % (11.5-14.5)
[2018-08-14 00:08] LABS: MUCOUS Present /lpf; PH 5 (5-8); SQUAMOUS EPITHELIAL 0-2 /hpf; URINE APPEARANCE Clear; URINE BACTERIA None Seen /hpf; URINE BILIRUBIN Negative (NEGATIVE); URINE BLOOD Negative (NEGATIVE); URINE COLOR Yellow; URINE GLUCOSE Negative (NEGATIVE); URINE KETONE Negative (NEGATIVE); URINE LEUKOCYTE ESTERASE Negative (NEGATIVE); URINE NITRATE Negative (NEGATIVE); URINE PROTEIN(semi-quant) Negative (NEGATIVE); URINE RBC 0-2 /hpf; URINE UROBILINOGEN Negative (NEGATIVE)
[2018-08-14 00:09] LABS: BLOOD UREA NITROGEN 16 mg/dL (9-20); CREATININE, serum 0.85 mg/dL (0.66-1.25); GLUCOSE 106 mg/dL (74-106)
[2018-08-14 00:10] LABS: ALANINE AMINOTRANSFERASE 28 U/L (21-72); ALBUMIN 4.3 gm/dL (3.5-5.0); ALKALINE PHOSPHATASE 60 U/L (50-136); AST,SGOT 24 U/L (15-37); BILIRUBIN,TOTAL 0.4 mg/dL (0.0-1.0); C-REACTIVE PROTEIN 0.7 mg/dL (0.0-0.9); CALCIUM 9.6 mg/dL (8.4-10.2); CARBON DIOXIDE 25 mmol/L (22-30); CHLORIDE 106 mmol/L (98-107); LIPASE 50 U/L (23-300); POTASSIUM 4.3 mmol/L (3.4-5.0); SODIUM 140 mmol/L (137-145); TOTAL PROTEIN 7.6 gm/dL (6.4-8.2); TROPONIN-I < 0.012 ng/mL (0.000-0.035)
[2018-08-14 00:11] LABS: ANION GAP 9 mmol/L (7-16)
== END 2018-08-12 11:00 | disposition home or self-care (01) ==
LOC: COL.ER 08:34
PROVIDERS: Physician Assistant
DX: R10.9 Unspecified abdominal pain (principal); I10 Essential (primary) hypertension; F17.210 Nicotine dependence, cigarettes, uncomplicated

== ENCOUNTER 2018-09-06 09:49 | Emergency (ER) | payer BC ==
[~2018-09-06] VITALS: Ht 195.6 cm; Wt 102.3 kg
[2018-09-06 09:59] VITALS: BP 141/91; TEMP 97.8
[2018-09-06] MEDS ORDERED: CATAPRES 0.1MG0.1 MG PO (10:12)
[2018-09-06 10:36] LABS: BASO # 0.1 (0.0-0.2); BASO % 1.7 % (0.0-2.0); EOS # 0.2 (0.0-0.7); EOS % 2.5 % (0-4.0); GRAN % 52.9 % (42.2-75.2); HEMATOCRIT 51.2 % (42.0-52.0); HEMOGLOBIN 16.7 g/dl (13.5-18.0); LYMPH # 2.3 (1.2-3.4); LYMPH % 30.3 % (20.0-51.0); MEAN CELL VOLUME 89 fl (80.0-100.0); MEAN CORPUSCULAR HEMOGLOBIN 29 pg (27.0-31.0); MEAN CORPUSCULAR HGB CONC 33 g/dl (33.0-37.0); MEAN PLATELET VOLUME 9.6 fl (7.4-10.4); MONO # 0.9 (0.1-0.6); MONO % 12.1 % (1.7-9.3); PLATELET COUNT 262 K/mm3 (130-400); RED BLOOD COUNT 5.75 M/mm3 (4.20-5.60); REDCELL DISTRIBUTION WIDTH-CV 15.3 % (11.5-14.5)
[2018-09-06 10:54] LABS: ALANINE AMINOTRANSFERASE 10 U/L (21-72); ALBUMIN 4.1 gm/dL (3.5-5.0); ALKALINE PHOSPHATASE 54 U/L (50-136); ANION GAP 9 mmol/L (7-16); AST,SGOT 23 U/L (15-37); BILIRUBIN,TOTAL 0.5 mg/dL (0.0-1.0); BLOOD UREA NITROGEN 19 mg/dL (9-20); C-REACTIVE PROTEIN 0.6 mg/dL (0.0-0.9); CARBON DIOXIDE 25 mmol/L (22-30); CHLORIDE 106 mmol/L (98-107); CREATININE, serum 0.81 mg/dL (0.66-1.25); GLUCOSE 139 mg/dL (74-106); LIPASE 414 U/L (23-300); PHOSPHOROUS 3.4 mg/dL (2.5-4.5); POTASSIUM 4.2 mmol/L (3.4-5.0); SODIUM 139 mmol/L (137-145); TOTAL PROTEIN 7.2 gm/dL (6.4-8.2)
[2018-09-06 11:01] LABS: TROPONIN-I < 0.012 ng/mL (0.000-0.035)
[2018-09-06 11:21] LABS: COLLECTION METHOD CLEAN CATCH
[2018-09-06 11:34] LABS: PH 6 (5-8); SQUAMOUS EPITHELIAL None Seen /hpf; URINE APPEARANCE Clear; URINE BACTERIA None Seen /hpf; URINE BILIRUBIN Negative (NEGATIVE); URINE BLOOD Negative (NEGATIVE); URINE COLOR Yellow; URINE GLUCOSE Negative (NEGATIVE); URINE KETONE Negative (NEGATIVE); URINE LEUKOCYTE ESTERASE Negative (NEGATIVE); URINE NITRATE Negative (NEGATIVE); URINE PROTEIN(semi-quant) Negative (NEGATIVE); URINE RBC 0-2 /hpf; URINE UROBILINOGEN Negative (NEGATIVE)
[2018-09-06] MEDS ORDERED: PHENERGAN 25 TA25 MG PO (13:07)
[2018-09-06 13:19] VITALS: PULSE 84
== END 2018-09-06 13:21 | disposition home or self-care (01) ==
LOC: COL.ER 09:49
PROVIDERS: Emergency Medicine
DX: G89.29 Other chronic pain (principal); R10.9 Unspecified abdominal pain; I10 Essential (primary) hypertension; F17.210 Nicotine dependence, cigarettes, uncomplicated
CPT/HCPCS: J1170; J1200; J2060; J2550; J7030

== ENCOUNTER 2018-10-25 10:28 | Emergency (ER) | payer BC ==
[~2018-10-25] VITALS: Ht 195.6 cm; Wt 102.3 kg
[~2018-10-25 10:28] MED LIST changes: +CATAPRES 0.1MG0.1 MG PO
[2018-10-25 10:34] VITALS: TEMP 98
[2018-10-25 11:00] LABS: BASO # 0.1 (0.0-0.2); BASO % 1.3 % (0.0-2.0); EOS # 0.2 (0.0-0.7); EOS % 1.9 % (0-4.0); GRAN # 5.8 (1.4-6.5); GRAN % 57.8 % (42.2-75.2); HEMATOCRIT 53.1 % (42.0-52.0); HEMOGLOBIN 17.7 g/dl (13.5-18.0); LYMPH # 2.8 (1.2-3.4); LYMPH % 27.7 % (20.0-51.0); MEAN CELL VOLUME 90 fl (80.0-100.0); MEAN CORPUSCULAR HEMOGLOBIN 30 pg (27.0-31.0); MEAN CORPUSCULAR HGB CONC 33 g/dl (33.0-37.0); MEAN PLATELET VOLUME 10.3 fl (7.4-10.4); MONO # 1.1 (0.1-0.6); MONO % 10.8 % (1.7-9.3); PLATELET COUNT 260 K/mm3 (130-400); RED BLOOD COUNT 5.89 M/mm3 (4.20-5.60); REDCELL DISTRIBUTION WIDTH-CV 14.8 % (11.5-14.5)
[2018-10-25 11:40] LABS: ALBUMIN 4.2 gm/dL (3.5-5.0); BILIRUBIN,TOTAL 0.6 mg/dL (0.0-1.0); CALCIUM 9.3 mg/dL (8.4-10.2); CREATININE, serum 0.87 (0.66-1.25); POTASSIUM 4.5 mmol/L (3.4-5.0); TOTAL PROTEIN 7.5 gm/dL (6.4-8.2)
[2018-10-25 12:26] VITALS: BP 140/96; PULSE 66
== END 2018-10-25 12:27 | disposition home or self-care (01) ==
LOC: COL.ER 10:28
PROVIDERS: Family Medicine
DX: R51 Headache (principal); I10 Essential (primary) hypertension; F41.9 Anxiety disorder, unspecified
CPT/HCPCS: J2405

== ENCOUNTER 2019-08-08 00:13 | Emergency (ER) | payer SELFPAY ==
[~2019-08-08] VITALS: Ht 195.6 cm; Wt 105.5 kg
[2019-08-08 00:17] VITALS: TEMP 97.7
[2019-08-08 01:33] VITALS: BP 137/90; PULSE 71
== END 2019-08-08 01:33 | disposition home or self-care (01) ==
LOC: COL.ER 00:13
DX: M25.562 Pain in left knee (principal)

== ENCOUNTER 2020-09-21 10:24 | Emergency (ER) | payer SELFPAY ==
[~2020-09-21] VITALS: Ht 195.6 cm; Wt 114.5 kg
[2020-09-21 10:34] VITALS: TEMP 97.3
[2020-09-21 10:56] LABS: HEMOGLOBIN 17.7 g/dl (13.5-18.0); MEAN CELL VOLUME 90 fl (80.0-100.0); MEAN CORPUSCULAR HEMOGLOBIN 30 pg (27.0-31.0); MEAN CORPUSCULAR HGB CONC 34 g/dl (33.0-37.0); MEAN PLATELET VOLUME 9.5 fl (7.4-10.4); PLATELET COUNT 302 K/mm3 (130-400); REDCELL DISTRIBUTION WIDTH-CV 14.1 % (11.5-14.5)
[2020-09-21 10:57] LABS: HEMATOCRIT 52.9 % (42.0-52.0)
[2020-09-21 11:01] LABS: PROTHROMBIN TIME 11.6 SECONDS (9.7-12.8)
[2020-09-21 11:05] LABS: ALBUMIN 4.3 gm/dL (3.5-5.0); BILIRUBIN,TOTAL 0.4 mg/dL (0.0-1.0); CALCIUM 9.4 mg/dL (8.4-10.2); CREATININE, serum 1.06 (0.66-1.25); POTASSIUM 4.4 mmol/L (3.4-5.0); TOTAL PROTEIN 7.9 gm/dL (6.4-8.2)
[2020-09-21 11:28] LABS: BAND 2 % (0-10); BASOPHIL 1 % (0-2); EOSINOPHIL 1 % (0-4); LYMPHOCYTE 28 % (20.0-51.0); NEUTROPHILS 59 % (42.0-75.2); PLATELET ESTIMATE NORMAL (NORMAL)
[2020-09-21] MEDS ORDERED: XARELTO15 MG PO (13:16)
[2020-09-21] MEDS ORDERED: NORCO 325 MG-51 TAB PO (13:17)
[2020-09-21 13:28] VITALS: BP 158/107; PULSE 71
--- NOTE | 2020-09-21 13:59 | NUR ---
[employer] responded to consult in the ED as patient will be discharged with a prescription for Xarelto and does not have insurance coverage. SW met with patient who advised he does not have current insurance coverage, but knows this is something he needs. Patient has never applied for Medicare or Medicaid as he felt he was in good health and did not need it. Patient recognizes that he would benefit from having insurance. Patient sees Jhoana Mike at [facility] for primary care and is agreeable to have SW schedule him a follow up appointment. SW provided patient with a 30 day free trial card for Xarelto as well as a [employer] card. SW explained the importance of following up with primary care and financial counseling. Patient verbalized understanding. Patient is eager to be discharged and advised his girlfriend, Laurel will pick him up. RANDELL collaborated the above information to RN, Diya. RANDELL consulted Cassidy, Financial Counselor and provided patient's phone number. Cassidy to follow up. RANDELL also contacted the [facility] and scheduled a follow up appointment with Jhoana Mike APRN for 10/09/20 @ 4430. RANDELL called patient and provided this appointment date and time. RANDELL collaborated with ED Physician and patient to discharge on Xarelto 15 mg twice daily.
== END 2020-09-21 13:23 | disposition home or self-care (01) ==
LOC: COL.ER 10:24
PROVIDERS: Nurse Practitioner
DX: I82.461 Acute embolism and thrombosis of right calf muscular vein (principal); I10 Essential (primary) hypertension; F17.210 Nicotine dependence, cigarettes, uncomplicated; Z88.0 Allergy status to penicillin; Z88.8 Allergy status to other drugs, medicaments and biological substances
CPT/HCPCS: J3010

== ENCOUNTER → 2021-11-15 | Outpatient (CLI) | payer SELFPAY ==
[~2021-11-15] MED LIST changes: +XARELTO15 MG PO
== END ==
LOC: COL.VAS 09:45
DX: M79.89 Other specified soft tissue disorders (principal); M79.604 Pain in right leg; Z86.718 Personal history of other venous thrombosis and embolism

== ENCOUNTER 2022-02-09 07:30 | Emergency (ER) | payer SELFPAY ==
[~2022-02-09] VITALS: Ht 195.6 cm; Wt 106.8 kg
[2022-02-09 07:46] VITALS: BP 187/112; TEMP 97.8
[2022-02-09] MEDS ORDERED: PERCOCET 325 MG1 TA2 PO (09:00)
[2022-02-09 09:29] VITALS: PULSE 85
== END 2022-02-09 09:29 | disposition home or self-care (01) ==
LOC: COL.ER 07:30
DX: M54.9 Dorsalgia, unspecified (principal); Z87.39 Personal history of other diseases of the musculoskeletal system and connective tissue; Z88.6 Allergy status to analgesic agent; Z28.311 Partially vaccinated for COVID-19
CPT/HCPCS: J2270; J2360

== ENCOUNTER 2022-07-26 16:40 | Emergency (ER) | payer SELFPAY ==
[~2022-07-26] VITALS: Ht 195.6 cm; Wt 109.1 kg
[~2022-07-26 16:40] MED LIST changes: +INDOCIN 25MG CA25 MG PO; +XARELTO STARTER20 MG PO
[2022-07-26 16:45] VITALS: TEMP 97.5
[2022-07-26 16:58] LABS: BASO # 0.1 K/mm3 (0.0-0.2); BASO % 1.2 % (0.0-2.0); EOS # 0.2 K/mm3 (0.0-0.7); EOS % 2.2 % (0.0-4.0); GRAN # 6.1 K/mm3 (1.4-6.5); HEMATOCRIT 49.9 % (42.0-52.0); HEMOGLOBIN 17.4 g/dl (13.5-18.0); LYMPH % 27.4 % (20.0-51.0); MEAN CELL VOLUME 86 fl (80.0-100.0); MEAN CORPUSCULAR HEMOGLOBIN 30 pg (27-31); MEAN CORPUSCULAR HGB CONC 35 g/dl (33.0-37.0); MEAN PLATELET VOLUME 9.6 fl (7.4-10.4); MONO # 1.4 K/mm3 (0.1-0.6); MONO % 12.6 % (1.7-9.3); PLATELET COUNT 302 K/mm3 (130-400); RED BLOOD COUNT 5.79 M/mm3 (4.20-5.60); REDCELL DISTRIBUTION WIDTH-CV 13.3 % (11.5-14.5)
[2022-07-26 17:05] LABS: INR 1.4 (0.8-3.0); PROTHROMBIN TIME 16.1 SECONDS (9.7-12.8)
[2022-07-26 17:15] LABS: ALANINE AMINOTRANSFERASE 20 U/L (0-55); ALBUMIN 3.8 gm/dL (3.4-4.8); ALKALINE PHOSPHATASE 66 U/L (40-150); ANION GAP 10 mmol/L (7-16); AST,SGOT 18 U/L (5-34); BILIRUBIN,TOTAL 0.4 mg/dL (0.2-1.2); BLOOD UREA NITROGEN 13 mg/dL (8-26); CALCIUM 9.6 mg/dL (8.4-10.2); CARBON DIOXIDE 22 mmol/L (23-31); CHLORIDE 106 mmol/L (98-107); CREATININE, serum 0.96 mg/dL (0.72-1.25); GLUCOSE 122 mg/dL (70-99); POTASSIUM 3.5 mmol/L (3.5-4.5); SODIUM 138 mmol/L (136-145); TOTAL PROTEIN 8.1 gm/dL (6.2-8.1)
[2022-07-26 17:21] LABS: TROPONIN-I < 0.010 ng/mL (0.00-0.033)
[2022-07-26] MEDS ORDERED: NORCO 325 MG-51 TAB PO (18:01)
[2022-07-26] MEDS ORDERED: CLEOCIN HCL300 MG PO (18:01)
[2022-07-26 19:45] VITALS: BP 147/100; PULSE 64
== END 2022-07-26 19:47 | disposition home or self-care (01) ==
LOC: COL.ER 16:40
PROVIDERS: Family Medicine
DX: R42 Dizziness and giddiness (principal); R07.89 Other chest pain; I10 Essential (primary) hypertension; K08.89 Other specified disorders of teeth and supporting structures; Z88.1 Allergy status to other antibiotic agents
CPT/HCPCS: J0360

== ENCOUNTER 2024-01-26 18:49 | Emergency (ER) | payer MEDICARE ==
[~2024-01-26] VITALS: Ht 195.6 cm; Wt 111.4 kg
[~2024-01-26 18:49] MED LIST changes: +CLEOCIN HCL300 MG PO
[2024-01-26 18:56] VITALS: BP 143/103; PULSE 69; TEMP 98.2
[2024-01-27] MEDS ORDERED: LEVAQUIN 5500 MG/TA1 PO (06:35)
== END 2024-01-26 19:25 | disposition left against medical advice (07) ==
LOC: COL.ER 18:49
DX: R10.30 Lower abdominal pain, unspecified (principal)

== ENCOUNTER 2024-01-27 05:51 | Emergency (ER) | payer MEDICARE ==
[~2024-01-27] VITALS: Ht 195.6 cm; Wt 109.1 kg
[2024-01-27 06:05] VITALS: BP 149/96; TEMP 97.7
[2024-01-27] MEDS ORDERED: LEVAQUIN 5500 MG/TA1 PO (06:35)
[2024-01-27 06:40] VITALS: PULSE 71
[2024-01-27 06:42] LABS: COLLECTION METHOD CLEAN CATCH
[2024-01-27] MEDS ORDERED: levoFLOXacin 500 MG TAB PO ONE (06:45)
[2024-01-27 06:54] LABS: PH 5.5 (5.0-8.5); URINE APPEARANCE CLEAR (CLEAR/HAZY); URINE BLOOD NEGATIVE (NEGATIVE); URINE COLOR Dark Yellow (YELLOW); URINE GLUCOSE NEGATIVE (NEGATIVE); URINE KETONE TRACE (NEGATIVE); URINE NITRATE NEGATIVE (NEGATIVE); URINE PROTEIN(semi-quant) 1+ (NEGATIVE)
[2024-01-27] MEDS ORDERED: Home HYDROcodone/Acetaminophen 5/325 MG #4 TABS/PACK PO ONE (07:00)
== END 2024-01-27 06:50 | disposition home or self-care (01) ==
LOC: COL.ER 05:51
PROVIDERS: Emergency Medicine
DX: N41.9 Inflammatory disease of prostate, unspecified (principal); F17.210 Nicotine dependence, cigarettes, uncomplicated

== ENCOUNTER → 2024-02-02 | Outpatient (CLI) | payer MEDICARE ==
[~2024-02-02] MED LIST changes: +LEVAQUIN 5500 MG/TA1 PO
== END ==
LOC: MHCPAIN 13:56
DX: M17.0 Bilateral primary osteoarthritis of knee (principal); M25.561 Pain in right knee; M25.562 Pain in left knee
CPT/HCPCS: G0463

== ENCOUNTER 2024-02-28 07:24 | Emergency (ER) | payer MEDICARE ==
[~2024-02-28] VITALS: Ht 195.6 cm; Wt 109.1 kg
[2024-02-28] MEDS ORDERED: Morphine 4 MG/ML VIAL IV PRN (07:45)
[2024-02-28] MEDS ORDERED: Ondansetron 4 MG/2 ML VIAL IV ONE (07:45)
[2024-02-28] MEDS ORDERED: NS 1,000 ML IV ONE ×2 (08:00→08:45)
[2024-02-28] MEDS ORDERED: Morphine 4 MG/ML VIAL IV ONE ×2 (08:00→09:00)
[2024-02-28 08:02] LABS: MEAN CELL VOLUME 89 fl (80.0-100.0); MEAN CORPUSCULAR HGB CONC 35 g/dl (33.0-37.0); MEAN PLATELET VOLUME 10.2 fl (7.4-10.4); PLATELET COUNT 247 K/mm3 (130-400); RED BLOOD COUNT 6.45 M/mm3 (4.20-5.60); REDCELL DISTRIBUTION WIDTH-CV 13.2 % (11.5-14.5)
[2024-02-28 08:22] LABS: ALBUMIN 4.8 g/dL (3.4-4.8); BILIRUBIN,TOTAL 0.5 mg/dL (0.2-1.2); CALCIUM 11.1 mg/dL (8.4-10.2); CREATININE, serum 1.11 mg/dL (0.72-1.25); POTASSIUM 3.9 mEq/L (3.5-4.5)
[2024-02-28 08:28] LABS: TROPONIN-I 0.017 ng/mL (0.00-0.033)
[2024-02-28 08:30] LABS: HEMATOCRIT 57.2 % (42.0-52.0); HEMOGLOBIN 19.9 g/dl (13.5-18.0); MEAN CORPUSCULAR HEMOGLOBIN 31 pg (27-31)
[2024-02-28] MEDS ORDERED: NS 100 ML IV SCH (08:45)
[2024-02-28] MEDS ORDERED: Iohexol 300 - 100 ML VIAL IV ONE (08:47)
[2024-02-28] MEDS ORDERED: FLOMAX 0.40.4 MG/CAP PO (09:02)
[2024-02-28 09:07] LABS: INR 1.1 (0.8-3.0); PROTHROMBIN TIME 12.2 SECONDS (9.7-12.8)
[2024-02-28 09:10] LABS: PARTIAL THROMBOPLASTIN TIME 38.3 SECONDS (26.0-37.0)
[2024-02-28 09:36] LABS: COLLECTION METHOD CLEAN CATCH
[2024-02-28 09:46] LABS: URINE APPEARANCE CLEAR (CLEAR/HAZY); URINE BLOOD NEGATIVE (NEGATIVE); URINE COLOR YELLOW (YELLOW); URINE GLUCOSE NEGATIVE (NEGATIVE); URINE KETONE 1+ (NEGATIVE); URINE NITRATE NEGATIVE (NEGATIVE); URINE PROTEIN(semi-quant) 2+ (NEGATIVE); URINE UROBILINOGEN 0.2 E.U/dL (0.2-1.0)
[2024-02-28 10:01] LABS: LYMPHOCYTE 29 % (20.0-51.0); NEUTROPHILS 42 % (42.0-75.2)
[2024-02-28 10:02] LABS: PLATELET ESTIMATE NORMAL (NORMAL)
[2024-02-28] MEDS ORDERED: FLEXERIL 1010 MG/TAB PO (10:30)
[2024-02-28] MEDS ORDERED: NORCO 325 MG-51 TAB PO (10:30)
[2024-02-28 10:42] VITALS: BP 152/102; PULSE 58; TEMP 98.9
== END 2024-02-28 10:43 | disposition home or self-care (01) ==
LOC: COL.ER 07:24
PROVIDERS: Family Medicine
DX: U07.1 COVID-19 (principal); I16.1 Hypertensive emergency; F17.200 Nicotine dependence, unspecified, uncomplicated; Z88.0 Allergy status to penicillin; Z79.899 Other long term (current) drug therapy
CPT/HCPCS: J1920; J2270; J2360; J2405; J7030; Q9967